=== PATIENT | male | born 1960 | race Caucasian/White ===

== ENCOUNTER → 2016-06-18 | Outpatient (CLI) | payer BC ==
[~2016-06-18] MED LIST: AVALIDE 12.5 MG1 TAB PO; INDERAL 20MG20 MG PO; LEVO T PO; LIP PO; TIZANIDINE HCL4 MG PO; ULTRAM50 MG PO
== END ==
LOC: COL.RAD 11:10
DX: M54.5 Low back pain (principal)

== ENCOUNTER → 2018-04-07 | Outpatient (CLI) | payer BC | LOC: COL.RAD 07:45 | DX: M25.552 Pain in left hip (principal) | CPT/HCPCS: J3301; Q9967 ==

== ENCOUNTER → 2019-04-18 | Outpatient (CLI) | payer BC | LOC: COL.RAD 04-14 09:15 | DX: M25.551 Pain in right hip (principal) | CPT/HCPCS: J3301; Q9967 ==

== ENCOUNTER → 2019-12-21 | Outpatient (CLI) | payer BC | LOC: COL.RAD 11:17 | DX: M47.812 Spondylosis without myelopathy or radiculopathy, cervical region (principal); M48.02 Spinal stenosis, cervical region; M48.061 Spinal stenosis, lumbar region without neurogenic claudication; M48.07 Spinal stenosis, lumbosacral region; M47.816 Spondylosis without myelopathy or radiculopathy, lumbar region; Z98.1 Arthrodesis status; Z96.82 Presence of neurostimulator ==

== ENCOUNTER → 2020-01-23 | Outpatient (CLI) | payer BC | LOC: COL.RAD 13:55 | DX: M25.552 Pain in left hip (principal) | CPT/HCPCS: J3301; Q9967 ==

== ENCOUNTER 2020-06-13 09:42 | Outpatient (CLI) | payer BC ==
[2020-06-13] VITALS (7 sets, daily range): BP systolic 124–162; BP diastolic 82–97; PULSE 53–59
[~2020-06-13] VITALS: Ht 177.8 cm; Wt 101.5 kg
[~2020-06-13 09:42] MED LIST changes: +LIPITOR 80MG80 MG PO; +SYNTHROID0.05 MG/TA PO; +ULTRAM 50MG TAB50 MG PO; +ZANAFLEX CAPSULE4 MG PO
[2020-06-13] MEDS ORDERED: MOBIC15 MG PO (10:10)
== END 2020-06-13 13:39 | disposition home or self-care (01) ==
LOC: COL.RAD 09:42
DX: M47.814 Spondylosis without myelopathy or radiculopathy, thoracic region (principal); M48.061 Spinal stenosis, lumbar region without neurogenic claudication; M48.07 Spinal stenosis, lumbosacral region; M47.816 Spondylosis without myelopathy or radiculopathy, lumbar region; M47.817 Spondylosis without myelopathy or radiculopathy, lumbosacral region; I77.810 Thoracic aortic ectasia; Z98.1 Arthrodesis status
CPT/HCPCS: Q9965

== ENCOUNTER → 2021-08-15 | Outpatient (CLI) | payer BC ==
[~2021-08-15] MED LIST changes: +MOBIC15 MG PO
== END ==
LOC: COL.VAS 08-08 09:00 → COL.RAD 08-08 09:45 → COL.VAS 08-08 09:45 → COL.RAD 08-11 09:00 → COL.VAS 09:00
DX: I10 Essential (primary) hypertension (principal); R39.15 Urgency of urination; R39.198 Other difficulties with micturition

== ENCOUNTER 2021-09-22 12:30 | Outpatient (CLI) | payer BC ==
[2021-09-22] VITALS (7 sets, daily range): BP systolic 92–133; BP diastolic 45–86; PULSE 52–60; TEMP 97.9
[~2021-09-22] VITALS: Ht 177.8 cm; Wt 90.2 kg
[2021-09-22] MEDS ORDERED: HYZAAR 50-12.1 UDTAB PO (12:52)
[2021-09-22] MEDS ORDERED: CYMBALTA 60MG60 MG PO (12:54)
[2021-09-22] MEDS ORDERED: CIALIS5 MG PO (12:55)
--- NOTE | 2021-09-22 15:30 | NUR ---
Pt ambulated in toilet in room, no problems with urinating. Discharge paperwork shared with pt, pt verbalizes understanding. Bandaid CDI, pt tolerated procedure and recovery without complication. Pt in wheelchair at discharge, escorted to door for friend to take home.
== END 2021-09-22 15:45 | disposition home or self-care (01) ==
LOC: COL.RAD 12:30
DX: M48.07 Spinal stenosis, lumbosacral region (principal); M48.54XA Collapsed vertebra, not elsewhere classified, thoracic region, initial encounter for fracture; R20.2 Paresthesia of skin
CPT/HCPCS: Q9965

== ENCOUNTER → 2021-11-07 | Outpatient (CLI) | payer BC ==
[~2021-11-07] MED LIST changes: +CIALIS5 MG PO; +CYMBALTA 60MG60 MG PO; +HYZAAR 50-12.1 UDTAB PO
== END ==
LOC: COL.RAD 08:43
DX: M25.551 Pain in right hip (principal)
CPT/HCPCS: J3301; Q9967